=== PATIENT | male | born 1960 | race Caucasian/White ===

== ENCOUNTER 2025-04-25 11:49 | Outpatient (CLI) | payer OTHER, SELFPAY ==
--- NOTE | ~2025-04-25 | PE_ITS ---
EXAMINATION: PET skull to mid thigh DATE: 04/25/2025 13:53 INDICATION: Lung nodule. TECHNIQUE: Blood glucose level was 92 mg/dL. 10.292 mCi of 18-fluorodeoxyglucose (18-FDG) was administered i.v. Low dose computed tomography (CT) images were acquired from the base of the brain to the proximal thighs for attenuation correction and anatomic localization. Automated exposure control was employed. Dose-length product (DLP) was 1227 mGy-cm. Positron emission tomography (PET) images were acquired in the same distribution. COMPARISON: None FINDINGS: Head/neck: There is a 1.8 cm cyst in right cheek, likely a sebaceous cyst. There are no pathologically enlarged lymph nodes. There is diffusely increased activity in the thyroid without abnormal CT correlate, likely benign. Chest: There is mild emphysema. There is mild atelectasis in right lung. There is moderate atelectasis in lingula. No pleural effusion. The heart size is normal. No pericardial effusion. There are no pathologically enlarged lymph nodes. Abdomen/pelvis/proximal thighs: The liver and spleen are normal. The gallbladder is absent. The pancreas, adrenal glands, and left kidney are normal. 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 The prostate is mildly enlarged. There is diverticulosis of the colon without evidence of diverticulitis. The appendix is normal. There are no pathologically enlarged lymph nodes. There is no free intraperitoneal fluid. There is no osseous malignancy. IMPRESSION: 1. No evidence of malignancy. Reviewed, dictated and finalized at location E.
== END 2025-04-25 11:50 | disposition home or self-care (01) ==
PROVIDERS: Visit Provider Internal Medicine
DX: R91.8 Other nonspecific abnormal finding of lung field (principal)
CPT/HCPCS: 78815; A9552